=== PATIENT | male | born 1955 ===

== ENCOUNTER 2019-06-27 19:30 | Outpatient (CLI) | payer OTHER | END 2019-06-27 19:31 | disposition home or self-care (01) | LOC: SLEEPLAB 19:30 | PROVIDERS: ATTEND Internal Medicine Pulmonary Disease | DX: G47.33 Obstructive sleep apnea (adult) (pediatric) (principal); R53.83 Other fatigue; R40.0 Somnolence; E66.9 Obesity, unspecified; R06.83 Snoring | CPT/HCPCS: 95810 ==

== ENCOUNTER 2019-07-11 19:30 | Outpatient (CLI) | payer OTHER | END 2019-07-11 19:31 | disposition home or self-care (01) | LOC: SLEEPLAB 19:30 | PROVIDERS: ATTEND Internal Medicine Pulmonary Disease | DX: G47.33 Obstructive sleep apnea (adult) (pediatric) (principal); R53.83 Other fatigue; E66.9 Obesity, unspecified; R06.83 Snoring | CPT/HCPCS: 95811 ==